=== PATIENT | female | born 1985 | race Caucasian/White ===

== ENCOUNTER 2021-09-26 08:52 | Emergency (ER) | payer OTHER, SELFPAY ==
--- NOTE | 2021-09-26 09:06 | ED.EAR ---
HPI - Ear Problem General Chief complaint: Ear Stated complaint: Ear Pain Time Seen by Provider: 09/26/21 09:06 Source: patient, RN notes reviewed and old records reviewed Mode of arrival: ambulatory Limitations: no limitations History of Present Illness HPI Narrative: 36-year-old female presents to the [facility] with complaints of left ear pain and vaginal irritation. Has low concern for an STD however wants to be tested. MD Complaint: ear pain Location: left ear Related Data Allergies Allergy/AdvReac Type Severity Reaction Status Date / Time No Known Allergies Allergy Verified 09/26/21 09:53 Review of Systems Review of Systems: All systems reviewed & are unremarkable except as noted in HPI and below Constitutional: Constitutional: Reports no additional constitutional complaints, Denies chills and Denies fever(s) Eyes: Eyes: Reports no additional eye complaints ENT: Reports as per HPI, Denies change in voice, Denies dental pain, Denies vertigo, Denies dizziness and Denies throat swelling Comments: Left ear pain Cardiovascular: Cardiovascular: Reports no additional cardiovascular complaints, Denies chest pain and Denies dyspnea Respiratory: Respiratory: Reports no additional respiratory complaints, Denies cough and Denies dyspnea Gastrointestinal: Gastrointestinal: Reports no additional gastrointestinal complaints, Denies abdominal pain, Denies nausea and Denies vomiting Genitourinary: Genitourinary: Reports as per HPI, Denies nocturia, Denies genital lesions, Denies dysuria, Denies flank pain and Denies urinary incontinence Musculoskeletal: Musculoskeletal: Reports no additional musculoskeletal complaints Integumentary/Breasts: Skin/Breast: Reports system reviewed and no additional complaints, except as docu Neurologic: Reports system reviewed and no additional complaints, except as documented, Denies vertigo and Denies dizziness Psychiatric: Psychiatric: Reports no additional psychiatric complaints Allergic/Immunologic: Allergic/Immunologic: Reports no additional allergic/immunologic complaints and Denies throat swelling PMFSH Past Medical History Medical History (Updated 09/26/21 @ 17:54 by Kamila Nieves) Patient denies medical problems Surgical History Surgical History (Updated 09/26/21 @ 17:55 by Kamila Nieves) H/O: hysterectomy No pertinent past surgical history Social History Social History (Updated 09/26/21 @ 17:54 by Kamila Nieves) Gender identity (if verbalized by the patient): Female Comments At the time of my signature, I reviewed and agree with the nursing past medical, surgical, social, and family history. There is no relevant family history pertinent to the patient complaint. Exam Const: General: healthy appearing and no acute distress Nutritional Appearance: well nourished and obese Orientation/consciousness: patient oriented x3 Limitations: no limitations HENMT: Head: normal to inspection Ears: external ears normal, EAC's normal and TM abnormal with fluid behind the TM; not erythematous and with no loss of landmarks General nose exam: Normal external nose present and Normal nasal mucous membranes and turbinates present Face and sinus: normal facial exam Mouth: Yes Normal oral and palatal mucosa present Throat: posterior oropharynx normal, tonsils normal and uvula midline Eyes: Conjunctivae: conjunctivae normal Pupils: Equal, round and reactive pupils present Neck: Neck: normal visual inspection, no lymphadenopathy and no meningeal signs Chest: Chest palpation & inspection: normal inspection of the chest Resp: Effort & Inspection: normal respiratory effort and no use of accessory muscles Auscultation: clear to auscultation bilaterally, no crackles, no rales, no rhonchi and no wheezes Cardio: Rate: regular rate Rhythm: regular rhythm : General: Yes no CVA tenderness External Female Exam: normal external appearance, No external swelling, No lesion and No External
[2021-09-26 09:10] VITALS: BP 114/72; PULSE 69; RESP 16; TEMP 36.9; O2SAT 99
== END 2021-09-26 10:00 | disposition home or self-care (01) ==
PROVIDERS: Emergency Provider Nurse Practitioner
DX: B37.3 Candidiasis of vulva and vagina (principal); H61.22 Impacted cerumen, left ear
CPT/HCPCS: 81003; 87070; 87077; 87491; 87591; 87661; 99214; G0463

== ENCOUNTER 2022-04-07 09:32 | Emergency (ER) | payer OTHER, SELFPAY ==
--- NOTE | 2022-04-07 09:37 | ED.GENADULT ---
HPI - General Adult General Chief complaint: Unspecified Stated complaint: left knee/abd pain Time Seen by Provider: 04/07/22 09:55 Source: patient Mode of arrival: ambulatory Limitations: no limitations History of Present Illness HPI narrative: 36-year-old female presents with multiple concerns. She reports intermittent left knee pain for more than a month. Reports pain started after she began running for exercise. She reports she occasionally feels like her knee is weak when she is walking. She denies any direct injury or trauma. She denies redness, warmth. Reports intermittent swelling. She denies any intervention for her knee pain. In a separate complaint she reports vaginal irritation, some occasional white discharge. She reports she is not overly concerned for STDs, but would mind getting tested just in case. She denies any foul vaginal discharge, rash, lesions. Reports occasional dysuria at the end of her urine stream. She also reports intermittent left lower abdominal discomfort. Reports she has had a partial hysterectomy but still has 1 ovary, she is not sure which one. She reports she is slightly constipated, she is not sure how often she has bowel movements but they are infrequent and she has to strain every time she has a bowel movement. She denies nausea, vomiting, diarrhea. MD complaint: Knee pain Related Data Allergies Allergy/AdvReac Type Severity Reaction Status Date / Time No Known Allergies Allergy Verified 04/07/22 09:38 Review of Systems Review of Systems: CONSTITUTIONAL: Denies malaise, chills, sweats, or fever. EYES: Denies visual changes, redness, or discharge. ENT: Denies rhinorrhea, congestion, sinus pain, otalgia or sore throat. CARDIOVASCULAR: Denies chest pain, palpitations, or edema. RESPIRATORY: Denies cough or dyspnea. GASTROINTESTINAL: Reports intermittent left lower abdominal pain, constipation. Denies nausea, vomiting, diarrhea, bloody, or mucous stools. GENITOURINARY: Reports occasional dysuria. Denies frequency, urgency, hematuria. SKIN: Denies rash. Reports vaginal irritation MUSCULOSKELETAL: Reports left knee pain NEUROLOGIC: Denies numbness, weakness All systems reviewed & are unremarkable except as noted in HPI and below PMFSH Past Medical History Medical History (Updated 04/07/22 @ 10:48 by Kamila Dean NP) Patient denies medical problems Surgical History Surgical History (Updated 09/26/21 @ 17:55 by Kamila Nieves APRN) H/O: hysterectomy No pertinent past surgical history Social History Social History (Updated 09/26/21 @ 17:54 by Kamila Nieves APRN) Gender identity (if verbalized by the patient): Female Comments At time of signature, agree with nursing past medical, surgical, social and family history. There is no relevant family history pertinent to the presenting complaint Exam Narrative: GENERAL: Well-appearing, well-nourished, and in no acute distress. HEAD: Normocephalic, atraumatic. EYES: PERRLA, conjunctivae clear, and EOMI. ENT: Nares clear, turbinates pink, no rhinorrhea or epistaxis. Mucous membranes moist. Oropharynx without edema, erythema, or lesions. Tonsils not enlarged and without exudate. NECK: Supple. No lymphadenopathy CHEST: Speaks in full sentences. No respiratory distress. HEART: Regular rate and rhythm. ABDOMEN: Soft, flat, non-tender, nondistended. No guarding, rebound tenderness, or rigidity. No pulsatile masses. Bowel sounds present in all four quadrants. No organomegaly. Negative Vasquez?s sign. No periumbilical tenderness. No supra-pubic tenderness or distension. Good femoral pulses bilaterally. No hernia noted. No scars or surface trauma. : Vaginal exam deferred MUSC: No visible knee swelling, no knee tenderness, grossly normal left knee range of motion SKIN: Warm, dry, no rash. NEURO: Alert and oriented x3. PSYCH: Normal mood and affect Course Course Emergency Course: Patient is aware of diagnosis, understands an
[2022-04-07 09:40] VITALS: BP 108/82; PULSE 70; RESP 14; TEMP 36.4; O2SAT 100
== END 2022-04-07 11:00 | disposition home or self-care (01) ==
PROVIDERS: Emergency Provider Nurse Practitioner
DX: M25.562 Pain in left knee (principal); N89.8 Other specified noninflammatory disorders of vagina; K59.00 Constipation, unspecified
CPT/HCPCS: 81003; 87491; 87591; 87661; 99214; G0463

== ENCOUNTER 2022-05-09 10:29 | Emergency (ER) | payer OTHER, SELFPAY ==
[2022-05-09 10:42] VITALS: BP 126/86; PULSE 72; RESP 16; TEMP 36.7; O2SAT 99
--- NOTE | 2022-05-09 10:58 | ED.FEMALEGU ---
HPI - Female Genitourinary General Chief complaint: Urogenital-Female Stated complaint: abdominal pain, genital irritation Time Seen by Provider: 05/09/22 10:59 History of Present Illness HPI Narrative: Alisa Montalvo is a 36-year-old female with prior history of STI of trichomonas is here with vaginal itching and left lower quadrant discomfort. She is complaining of left lower quadrant pain-she had her ovary on the left removed 3 years ago because of ovarian cysts. She was treated for trichomonas at the beginning of April when her trichomonas test came back positive. She has been sexually active recently and she believes that the pain and her vaginal irritation is related potentially to the sexual activity rather than to vaginitis. We will send an STD tests via urine to the lab I sent Lisa to the pharmacy after her last positive trich test the first week of April and she states that she took the medication Related Data Allergies Allergy/AdvReac Type Severity Reaction Status Date / Time No Known Allergies Allergy Verified 05/09/22 10:33 Review of Systems Review of Systems: CONSTITUTIONAL: Denies fever, chills, sweats. EYES: Denies visual changes, redness, discharge. ENT: Denies rhinorrhea, congestion, sore throat, otalgia. CARDIOVASCULAR: Denies chest pain, palpitations, edema. RESPIRATORY: Denies dyspnea, wheezing, cough GASTROINTESTINAL: Denies abdominal pain, nausea, vomiting, diarrhea. GENITOURINARY: Denies dysuria, hematuria, abnormal discharge SKIN: Denies rash or itching. NEUROLOGIC: Denies numbness, or focal weakness. PSYCHIATRIC: Denies anxiety or depression. Lower left abdominal pain and vaginal irritation PMFSH Past Medical History Medical History (Updated 05/09/22 @ 11:14 by Sagrario Tony CNP) Ovarian cyst Patient denies medical problems Surgical History Surgical History (Updated 05/09/22 @ 11:10 by Sagrario Tony CNP) H/O: hysterectomy History of appendectomy History of x3 History of left oophorectomy Social History Social History (Updated 05/09/22 @ 11:11 by Sagrario Tony CNP) Smoking status: Never smoker Alcohol intake: current Substance use: never Gender identity (if verbalized by the patient): Female Comments At time of signature, I agree with nursing past medical, surgical, social and family history. There is no relevant family history pertinent to the presenting complaint. Exam Narrative: GENERAL: This is a well-nourished, well-developed patient, in mild distress. HEAD: normocephalic, atraumatic. EYES: . Sclera clear/white. Vision is grossly intact. EARS: External ears normal, auditory canals clear and without drainage, TMs normal without perforation. Hearing grossly intact. NOSE: External nose normal without nasal discharge, nares without redness, no rhinorrhea. THROAT: Mucous membranes moist, NECK: Neck supple, non-tender CARDIOVASCULAR: Regular rate and rhythm without murmurs, gallops, or rubs. RESPIRATORY: Clear to auscultation. Breath sounds equal bilaterally. No wheezes, rales, or rhonchi. GASTROINTESTINAL: Abdomen soft, non-tender, unable to reproduce left lower quadrant pain on exam, bowel sounds normal SKIN: warm, intact with no suspicious lesions or rash, good texture and turgor. NEURO: awake, alert, and oriented to person, place and time. There were no obvious focal neurologic abnormalities. Steady gait EXTREMITIES: Normal range of motion. BACK: Nontender without deformity Course Course Emergency Course: Patient here with left lower quadrant pain and vaginal irritation Started on Diflucan with repeat in 3 days STD testing sent patient to follow-up with her doctor on Wednesday for possible imaging and blood work but if pain persists or gets worse or she develops a fever she is to go to the ER Level of Care: Express Care Visit Vital Signs Vital signs: Vital Signs Temperature 98.0 F 05/09/22 10:42 Pulse Rate 72 05/09/22 10:42 R
--- NOTE | 2022-05-09 11:06 | PC.NURSE ---
1050 gave ua spec.
== END 2022-05-09 11:20 | disposition home or self-care (01) ==
PROVIDERS: Emergency Provider Nurse Practitioner
DX: R10.32 Left lower quadrant pain (principal); N89.8 Other specified noninflammatory disorders of vagina
CPT/HCPCS: 87491; 87591; 87661; 99214; G0463

== ENCOUNTER 2022-09-04 13:41 | Emergency (ER) | payer OTHER, SELFPAY ==
--- NOTE | 2022-09-04 13:44 | ED.FEMALEGU ---
HPI - Female Genitourinary General Chief complaint: Urogenital-Female Stated complaint: uti/yeast infection Time Seen by Provider: 09/04/22 14:16 Source: patient and RN notes reviewed Mode of arrival: ambulatory Limitations: no limitations History of Present Illness HPI Narrative: 36-year-old female presents with concern for vaginal itching, white vaginal discharge for ?a minute?. She reports she has been treated several times for bacterial vaginosis and vaginal yeast infections. She reports she seems to get them often. She reports some discomfort in her left groin discomfort. She denies rash reports vaginal itching. She denies dysuria, frequency, urgency, back pain, abdominal pain. She reports she did have unprotected sex so has some concern for STI, however she does not know of any specific exposure MD elicited complaint: vaginal discharge and genital itching Related Data Allergies Allergy/AdvReac Type Severity Reaction Status Date / Time No Known Allergies Allergy Verified 09/04/22 13:44 Review of Systems Review of Systems: CONSTITUTIONAL: Denies malaise, chills, sweats, or fever. CARDIOVASCULAR: Denies chest pain, palpitations, or edema. RESPIRATORY: Denies cough or dyspnea. GASTROINTESTINAL: Denies abdominal pain, nausea, vomiting, diarrhea GENITOURINARY: Denies dysuria, frequency, urgency, suprapubic pressure. Denies flank pain or hematuria. Reports white vaginal discharge SKIN: Reports vaginal itching MUSCULOSKELETAL: Denies back pain or myalgia. 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 There is no relevant family history pertinent to the presenting complaint Exam Narrative: GENERAL: Well-appearing, well-nourished, and in no acute distress. HEAD: Normocephalic. EYES: PERRLA, conjunctivae clear. NECK: Supple. No lymphadenopathy CHEST: Clear to auscultation. No respiratory distress. HEART: Regular rate and rhythm. ABDOMEN: Soft, nontender upon palpation, nondistended, normal active bowel sounds, no palpable or pulsatile masses, no guarding. SKIN: Warm, dry, no rash. NEURO: Alert and oriented x3. PSYCH: Normal mood and affect : External Female Exam: normal external appearance Speculum Exam - Vagina: normal appearance of the vagina Speculum Exam - Cervix: normal appearance of the cervix Bimanual exam- vagina & uterus: normal bimanual exam Bimanual Exam- Adnexa, other: normal adnexae Course Course Emergency Course: Discussed options of treating for potential STI now or waiting for results, patient would prefer to wait for results. Patient's exam is consistent with possible genital yeast infection, will treat potentially for that while waiting for vaginal culture and STI testing. Patient understands she may have to return for an injection of antibiotic. Patient is aware of diagnosis, understands and agrees to treatment plan. Anticipatory guidance given. Patient agrees to follow-up as directed and is aware of reasons to seek care at the emergency department. Portions of this record may have been created with voice recognition software Level of Care: Express Care Visit Vital Signs Vital sign
[2022-09-04 13:54] VITALS: BP 121/81; PULSE 71; RESP 16; TEMP 37.2; O2SAT 99
== END 2022-09-04 14:40 | disposition home or self-care (01) ==
PROVIDERS: Emergency Provider Nurse Practitioner; PCP Registered Nurse
DX: L29.2 Pruritus vulvae (principal)
CPT/HCPCS: 81003; 87070; 87086; 87491; 87591; 87661; 99214; G0463

== ENCOUNTER 2023-04-08 08:44 | Emergency (ER) | payer OTHER, SELFPAY ==
[2023-04-08 08:49] VITALS: BP 116/70; PULSE 72; RESP 16; TEMP 36.7; O2SAT 100
--- NOTE | 2023-04-08 09:02 | ED.FEMALEGU ---
HPI - Female Genitourinary General Chief complaint: Urogenital-Female Stated complaint: Vaginal Problems/Abdominal Pain Time Seen by Provider: 04/08/23 09:03 Source: patient Mode of arrival: ambulatory Limitations: no limitations History of Present Illness HPI Narrative: Patient is a 37-year-old female who presents with abdominal pain, vaginal itching, and minor vaginal discharge for 2 weeks. Patient concern for STD and would like testing. States when she urinates it irritates her vagina. Denies any burning with urination, frequency or urgency. Denies any low back pain, fever, chills, nausea, vomiting, diarrhea. MD elicited complaint: vaginal discharge, possible STD and genital itching Related Data Allergies Allergy/AdvReac Type Severity Reaction Status Date / Time No Known Allergies Allergy Verified 09/04/22 13:44 Review of Systems Review of Systems: All systems reviewed & are unremarkable except as noted in HPI and below Constitutional: Constitutional: Denies chills, Denies fever(s), Denies headache(s), Denies malaise and Denies weakness Eyes: Eyes: Denies change in vision, Denies eye discharge and Denies irritation ENT: Denies otalgia, Denies headache(s), Denies nasal congestion, Denies nasal discharge, Denies sinus pain and Denies sore throat Cardiovascular: Cardiovascular: Denies chest pain, Denies edema, Denies palpitations and Denies dyspnea Respiratory: Respiratory: Denies cough and Denies dyspnea Gastrointestinal: Gastrointestinal: Denies abdominal pain, Denies diarrhea, Denies nausea and Denies vomiting Genitourinary: Genitourinary: Denies hematuria, Denies nocturia, Reports genital pruritis, Denies dysuria, Denies flank pain, Denies urinary urgency and Reports vaginal discharge Musculoskeletal: Musculoskeletal: Denies back pain and Denies numbness Integumentary/Breasts: Skin/Breast: Denies pruritus and Denies rash Neurologic: Denies headache(s), Denies numbness and Denies weakness Psychiatric: Psychiatric: Reports no additional psychiatric complaints Endocrine: Endocrine: Denies palpitations PMFSH Past Medical History Medical History Ovarian cyst Patient denies medical problems Surgical History Surgical History H/O: hysterectomy History of appendectomy History of x3 History of left oophorectomy Social History Social History Smoking status: Never smoker Alcohol intake: current Substance use: never Living arrangements: alone Occupation/Education: occupation 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 There is no relevant family history pertinent to the presenting complaint. Exam Const: General: cooperative, healthy appearing, comfortable, no acute distress and well nourished Nutritional Appearance: well nourished Orientation/consciousness: patient oriented x3 HENMT: Head: normocephalic and atraumatic Ears: external ears normal Face/Nose/Sinus: Normal external nose present, Normal nares present and normal facial exam Face and sinus: normal facial exam Eyes: General: appearance normal, both eyes and all related structures Pupils: Equal, round and reactive pupils present EOM: EOMs intact bilaterally Neck: Neck: normal visual inspection, full ROM and supple Chest: Chest palpation & inspection: normal inspection of the chest Resp: Effort & Inspection: normal respiratory effort and able to speak in complete sentences Cardio: Rate: regular rate Rhythm: regular rhythm GI: Inspection: normal to inspection GI Palp: No abdominal tenderness, Yes Soft to palpation, No Tenderness to palpation present (GI) and No Guarding due to p
== END 2023-04-08 09:39 | disposition home or self-care (01) ==
PROVIDERS: Emergency Provider Nurse Practitioner Family; PCP Registered Nurse
DX: B37.31 Acute candidiasis of vulva and vagina (principal)
CPT/HCPCS: 87491; 87591; 87661; 99214; G0463

== ENCOUNTER 2023-07-06 10:10 | Emergency (ER) | payer OTHER, SELFPAY ==
[2023-07-06 10:17] VITALS: BP 128/68; PULSE 78; RESP 16; TEMP 36.7; O2SAT 100
--- NOTE | 2023-07-06 10:42 | ED.FEMALEGU ---
HPI - Female Genitourinary General Chief complaint: Urogenital-Female Stated complaint: Vaginal/Abdomen Pain Time Seen by Provider: 07/06/23 10:45 Source: patient, RN notes reviewed and old records reviewed Mode of arrival: ambulatory Limitations: no limitations History of Present Illness HPI Narrative: 37-year-old female presents to the [facility] with a week worth of vaginal irritation and intermittent left lower abdominal pain Has a history of BV, yeast infections. Denies fevers. Related Data Allergies Allergy/AdvReac Type Severity Reaction Status Date / Time No Known Allergies Allergy Verified 07/06/23 10:26 Review of Systems Review of Systems: All systems reviewed & are unremarkable except as noted in HPI and below Constitutional: Constitutional: Reports no additional constitutional complaints Eyes: Eyes: Reports no additional eye complaints ENT: Reports system reviewed and no additional complaints, except as documented Cardiovascular: Cardiovascular: Reports no additional cardiovascular complaints, Denies chest pain and Denies dyspnea Respiratory: Respiratory: Reports no additional respiratory complaints, Denies chest congestion, Denies cough and Denies dyspnea Gastrointestinal: Gastrointestinal: Reports no additional gastrointestinal complaints, Denies abdominal pain, Denies nausea and Denies vomiting Genitourinary: Genitourinary: Reports as per HPI Musculoskeletal: Musculoskeletal: Reports no additional musculoskeletal complaints Integumentary/Breasts: Skin/Breast: Reports system reviewed and no additional complaints, except as docu Neurologic: Reports system reviewed and no additional complaints, except as documented Psychiatric: Psychiatric: Reports no additional psychiatric complaints Allergic/Immunologic: Allergic/Immunologic: Reports no additional allergic/immunologic complaints [facility] Past Medical History Medical History Ovarian cyst Patient denies medical problems Surgical History Surgical History H/O: hysterectomy History of appendectomy History of x3 History of left oophorectomy Social History Social History Smoking status: Never smoker Alcohol intake: current Substance use: never Living arrangements: alone 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 There is no relevant family history pertinent to the patient complaint. Exam Const: General: cooperative, healthy appearing, comfortable, no acute distress, well developed, alert and well nourished Nutritional Appearance: well nourished and obese Orientation/consciousness: patient oriented x3 Limitations: no limitations HENMT: Head: normal to inspection Ears: hearing grossly normal bilaterally and external ears normal Face/Nose/Sinus: Normal external nose present, Normal nares present, Normal nasal mucous membranes and turbinates present, normal facial exam and face symmetric Face and sinus: normal facial exam and face symmetric Mouth: Yes lip normal and Yes moist mucous membranes Eyes: General: appearance normal, both eyes and all related structures Alignment and Position: alignment normal Periorbital: periorbital findings normal Pupils: Equal, round and reactive pupils present EOM: EOMs intact bilaterally Neck: Neck: normal visual inspection, full ROM, no lymphadenopathy and no meningeal signs Chest: Chest palpation & inspection: normal inspection of the chest Resp: Effort & Inspection: normal respiratory effort and able to speak in complete sentences Auscultation: clear to auscultation bilaterally, no crackles, no ra
[2023-07-06 22:52] LABS: Trichomonas Vag PCR NOT DETECTED (NOT DETECTE)
[2023-07-06 23:15] LABS: Chlamydia trachomatis NOT DETECTED (NOT DETECTE); Neisseria gonorrhoeae PCR NOT DETECTED (NOT DETECTE)
== END 2023-07-06 11:15 | disposition home or self-care (01) ==
PROVIDERS: Emergency Provider Nurse Practitioner; PCP Registered Nurse
DX: N76.0 Acute vaginitis (principal)
CPT/HCPCS: 87070; 87491; 87591; 87661; 99214; G0463